=== PATIENT | female | born 2000 | race Caucasian/White ===

== ENCOUNTER 2020-10-04 20:05 | Emergency (ER) | payer BC, SELFPAY ==
[2020-10-04 20:30] VITALS: BP 138/85; PULSE 92; O2SAT 97
[2020-10-04 20:45] VITALS: BP 149/83; PULSE 98; RESP 18; TEMP 37.1; O2SAT 100; BMI 36.6
[2020-10-04 21:04] LABS: Adenovirus,PCR Not Detected (NotDetected); Bordetella Pertussis Not Detected (NotDetected); Chlamydophila Pneumoniae, PCR Not Detected (NotDetected); Coronavirus 19, PCR Not Detected (NotDetected); Coronavirus 229E Not Detected (NotDetected); Coronavirus OC43 Not Detected (NotDetected); Coronovirus HKU1,PCR Not Detected (NotDetected); Human Metapneumovirus Not Detected (NotDetected); Influenza A, PCR Not Detected (NotDetected); Influenza AH1, 2009 Not Detected (NotDetected); Influenza AH1, PCR Not Detected (NotDetected); Influenza AH3,PCR Not Detected (NotDetected); Influenza B, PCR Not Detected (NotDetected); Microscopic, Urine URINE MICROSCOPIC (MICROSCOPIC); Mycoplasma Pneumoniae, PCR Not Detected (NotDetected); Parainfluenza 1, PCR Not Detected (NotDetected); Parainfluenza 2, PCR Not Detected (NotDetected); Parainfluenza 3, PCR Not Detected (NotDetected); Parainfluenza 4, PCR Not Detected (NotDetected); Respiratory Syncytial Virus Not Detected (NotDetected); Rhinovirus/Enterovirus Not Detected (NotDetected)
[2020-10-04 21:07] VITALS: BP 136/88; PULSE 82; O2SAT 99
[2020-10-04 21:10] LABS: Basophils # 0.1 K/mm3 (0-0.2); Basophils % 0.4 % (0.1-2.0); Eosinophils # 0.2 K/mm3 (0.0-0.4); Eosinophils % 1.6 % (0.1-12.0); Hematocrit 34.2 % (37.0-47.0); Hemoglobin 11.9 g/dL (12.2-16.2); Lymphocytes # 2.9 K/mm3 (0.7-4.5); Lymphocytes % 25.3 % (10-50); Mean Corpuscular HGB Conc 34.6 g/dL (31.8-35.4); Mean Corpuscular Hemoglobin 27.7 pg (27.0-31.2); Mean Platelet Volume 6.6 fl (7.4-10.4); Monocytes # 0.5 K/mm3 (0.1-1.0); Monocytes % 4.5 % (1.7-9.3); Neutrophils # 7.7 K/mm3 (1.8-7.8); Neutrophils % 68.2 % (37.0-80.0); Platelet Count 361 K/mm3 (142-424); Red Blood Count 4.28 M/mm3 (4.20-5.40); Red Cell Distribution Width 13.8 % (11.5-17.5); White Blood Count 11.3 K/mm3 (4.8-10.8)
[2020-10-04 21:14] LABS: Alanine Aminotransferase 43 U/L (12-78); Albumin Level 4.2 g/dl (3.5-5.0); Albumin/Globulin Ratio 1.4 (1.1-1.8); Alkaline Phosphatase 83 U/L (38-126); Amylase 41 U/L (30-110); Anion Gap 10.4 mEq/L (5-15); Appearance,Urine CLEAR (Clear); Aspartate Amino Transferase 26 U/L (14-36); Bilirubin,Total 0.3 mg/dl (0.2-1.3); Bilirubin,Urine Negative (Negative); Blood Urea Nitrogen 4 mg/dl (7-17); Blood, Urine TRACE-I (Negative); Calcium 9.5 mg/dl (8.4-10.2); Carbon Dioxide 27 mmol/L (22.0-30.0); Chloride 104 mmol/L (98-107); Color,Urine YELLOW (Yellow); Creatinine Clearance Estimated 255 mL/min (50-200); Estimated Glomerular Filt Rate 156 ml/min (>60); GFR (African American) 188 ML/MIN (>60); Globulin 2.9 g/dL (1.3-3.2); Glucose 91 mg/dl (74-100); Glucose,Urine (UA) Negative (Negative); Ketones,Urine Negative (Negative); Leukocyte Esterase,Urine Negative (Negative); Lipase 21 U/L (23-300); Nitrate,Urine Negative (Negative); PH,Urine 6.5 (5.0-8.5); Potassium 3.4 mmoL/L (3.5-5.1); Protein,Urine Negative (Negative); Sodium 138 mmol/L (136-145); Total Protein,Serum 7.1 g/dl (6.3-8.2); Urobilinogen,Urine 0.2 EU/dl (0.2)
[2020-10-04 21:24] LABS: RBC,Urine Occasional #/hpf (0-3); WBC,Urine Occasional #/hpf (0-3)
--- NOTE | 2020-10-04 21:43 | HMH.EDGENADL ---
ED Disposition Clinical Impression: Viral infection Qualifiers: Weeks of gestation: 10 weeks Qualified Code(s): Z3A.10 - 10 weeks gestation of Abdominal pain Qualifiers: Abdominal location: periumbilical Qualified Code(s): R10.33 - Periumbilical pain Disposition: Home, Self-Care Condition on Discharge: Good Instructions: DI for Acute Pain -- Adult Additional Instructions: call ob and pcp in am Referrals: Nidia Draper APRN [Primary Care Provider] - - Critical Care Critical Care Time: No Attestation: On 10/04/20, the high probability of a clinically significant, sudden or life threatening deterioration of the following system(s) required my full and direct attention, intervention and personal management. The time I documented below is in addition to time spent performing reported procedures but includes the following listed in this critical care notation. Medical Decision Making - Medical Records Medical records reviewed: Yes: I reviewed the patient's medical records. - Celestine Inquiry Pt receiving controlled substance: No Vital Signs: 10/04/20 20:30 10/04/20 20:45 10/04/20 21:07 Temperature 98.8 F Temperature Source Oral Pulse Rate 92 H 82 Pulse Rate [Right] 98 H Respiratory Rate 18 Blood Pressure 138/85 136/88 Blood Pressure [Right Arm] 149/83 H Blood Pressure Mean [Right Arm] 105 Blood Pressure Source [Right Arm] Automatic Cuff Blood Pressure Position [Right Arm] Sitting 02 Sat by Pulse Oximetry 97 100 99 Oxygen Delivery Method Room Air - Lab Data Lab results reviewed: Yes: I reviewed the patient's lab results. Lab Results 10/04/20 20:10: Chlamy pneumoniae PCR Not detected, Adenovirus (PCR) Not detected, B. pertussis DNA (PCR) Not detected, Coronavirus OC43 (PCR) Not detected, Coronavirus HKU1 (PCR) Not detected, Coronavirus 229E (PCR) Not detected, SARS-CoV-2 (PCR) Not detected, Coronavirus NL63 (PCR) Detected A, Human Metapneumovir PCR Not detected, Influenza A (H1) PCR Not detected, Influ A (H1N1/09) PCR Not detected, Influenza A (H3) PCR Not detected, Influenza Type A (PCR) Not detected, Influenza Type B (PCR) Not detected, M. pneumoniae (PCR) Not detected, Parainfluenza 1 (PCR) Not detected, Parainfluenza 2 (PCR) Not detected, Parainfluenza 3 (PCR) Not detected, Parainfluenza 4 (PCR) Not detected, RSV (PCR) Not detected, Entero/Rhino (PCR) Not detected 10/04/20 20:10: Urine Color Yellow, Urine Appearance Clear, Urine pH 6.5, Ur Specific [place] 1.010, Urine Protein Negative, Urine Glucose (UA) Negative, Urine Ketones Negative, Urine Blood Trace-i, Urine Nitrate Negative, Urine Bilirubin Negative, Urine Urobilinogen 0.2, Ur Leukocyte Esterase Negative, Urine RBC Occasional, Urine WBC Occasional, Ur Squamous Epith Cells 3-5, Urine Bacteria None 10/04/20 20:10: WBC 11.3 H, RBC 4.28, Hgb 11.9 L, Hct 34.2 L, MCV 80.0 L, MCH 27.7, MCHC 34.6, RDW 13.8, Plt Count 361, MPV 6.6 L, Neut % (Auto) 68.2, Lymph % (Auto) 25.3, [place] % (Auto) 4.5, Eos % (Auto) 1.6, Baso % (Auto) 0.4, Neut # (Auto) 7.7, Lymph # (Auto) 2.9, [place] # (Auto) 0.5, Eos # (Auto) 0.2, Baso # (Auto) 0.1 10/04/20 20:10: Sodium 138, Potassium 3.4 L, Chloride 104, Carbon Dioxide 27, Anion Gap 10.4, BUN 4 L, Creatinine 0.50 L, Estimated Creat Clear 255, Estimated GFR 156, Est GFR ( Amer) 188, Glucose 91, Calcium 9.5, Total Bilirubin 0.3, AST 26, ALT 43, Alkaline Phosphatase 83, Total Protein 7.1, Albumin 4.2, Globulin 2.9, Albumin/Globulin Ratio 1.4, Amylase 41, Lipase 21 L, HCG, Quant [id number] H Result diagrams: 10/04/20 20:10 10/04/20 20:10 Medical Decision Narrative: has viral illness but not covid-19 and stable labs and has no def changes on exam - fht -0k General Adult HPI - General Chief complaint: PAIN Stated complaint: 10 wks having severe belly pain and a col Time Seen by Provider: 10/04/20 20:40 Mode of Arrival: Ambulatory Source of Information: Patient, Parent(s), Medical
[2020-10-04 22:29] LABS: Coronavirus NL63 Detected (NotDetected)
[2020-10-04 22:46] VITALS: BP 141/80; PULSE 84; RESP 16; TEMP 37
== END 2020-10-04 22:50 | disposition home or self-care (01) ==
PROVIDERS: Emergency Provider Emergency Medicine; PCP Nurse Practitioner
DX: B34.8 Other viral infections of unspecified site (principal); Z3A.10 10 weeks gestation of pregnancy; R10.33 Periumbilical pain; R05 Cough
CPT/HCPCS: 80053; 81001; 82150; 83690; 84702; 85025; 87581; 87633; 87798; 99283

== ENCOUNTER → 2021-12-20 11:25 | Outpatient (CLI) | payer OTHER, SELFPAY ==
[2021-12-20 18:36] LABS: Basophils # 0.1 K/mm3 (0-0.2); Basophils % 0.6 % (0.1-2.0); Eosinophils # 0.2 K/mm3 (0.0-0.4); Eosinophils % 1.9 % (0.1-12.0); Hematocrit 42.3 % (37.0-47.0); Hemoglobin 13.1 g/dL (12.2-16.2); Lymphocytes # 2.7 K/mm3 (0.7-4.5); Mean Corpuscular HGB Conc 30.9 g/dL (31.8-35.4); Mean Corpuscular Hemoglobin 26.9 pg (27.0-31.2); Mean Corpuscular Volume 87.1 fl (81-99); Mean Platelet Volume 8.6 fl (7.4-10.4); Monocytes # 0.4 K/mm3 (0.1-1.0); Monocytes % 4.8 % (1.7-9.3); Neutrophils # 5.6 K/mm3 (1.8-7.8); Neutrophils % 62.6 % (37.0-80.0); Platelet Count 480 K/mm3 (142-424); Red Blood Count 4.86 M/mm3 (4.20-5.40); Red Cell Distribution Width 13.5 % (11.5-17.5); White Blood Count 8.9 K/mm3 (4.8-10.8)
[2021-12-20 18:37] LABS: Alanine Aminotransferase 50 U/L (12-78); Albumin Level 4.1 g/dl (3.5-5.0); Albumin/Globulin Ratio 1.6 (1.1-1.8); Alkaline Phosphatase 104 U/L (38-126); Anion Gap 10.3 mEq/L (5-15); Aspartate Amino Transferase 41 U/L (14-36); Blood Urea Nitrogen 10 mg/dl (7-17); Calcium 9.3 mg/dl (8.4-10.2); Carbon Dioxide 26 mmol/L (22.0-30.0); Chloride 107 mmol/L (98-107); Chol/HDL Ratio 4.6 (1-3.5); Cholesterol 167 mg/dl (140-200); Estimated Glomerular Filt Rate 124 ml/min (>60); GFR (African American) 150 ML/MIN (>60); Globulin 2.6 g/dL (1.3-3.2); Glucose 102 mg/dl (74-100); HDL Cholesterol 36 mg/dl (40-60); Potassium 4.3 mmoL/L (3.5-5.1); Sodium 139 mmol/L (136-145); Total Protein,Serum 6.7 g/dl (6.3-8.2); Triglycerides 112 mg/dl (30-150); VLDL Cholesterol 22 mg/dL (0-40)
[2021-12-20 18:43] LABS: Bilirubin,Total < 0.1 mg/dl (0.2-1.3)
[2021-12-20 18:54] LABS: 25-OH Vitamin D, Total 60.5 ng/mL (30-100)
[2021-12-20 19:07] LABS: Thyroid Stimulating Hormone 0.69 uIU/mL (0.465-4.68)
[2021-12-20 19:27] LABS: Vitamin B12 316 pg/mL (239-931)
[2021-12-20 20:09] LABS: Hemoglobin A1C 4.9 % (4.0-6.0)
[2021-12-22 08:25] LABS: Direct LDL Cholesterol 103 mg/dL (100-129)
== END ==
PROVIDERS: PCP Nurse Practitioner; Visit Provider Nurse Practitioner
DX: E66.9 Obesity, unspecified (principal); Z68.35 Body mass index [BMI] 35.0-35.9, adult
CPT/HCPCS: 80053; 80061; 82306; 82607; 83036; 84443; 85025

== ENCOUNTER 2023-05-13 21:34 | Outpatient (CLI) | payer OTHER, SELFPAY ==
[2023-05-13 17:43] LABS: Basophils # 0.1 K/mm3 (0-0.2); Basophils % 0.5 % (0.1-2.0); Eosinophils # 0.3 K/mm3 (0.0-0.4); Eosinophils % 2.9 % (0.1-12.0); Hematocrit 44.2 % (37.0-47.0); Hemoglobin 15.3 g/dL (12.2-16.2); Lymphocytes # 2.7 K/mm3 (0.7-4.5); Lymphocytes % 24.6 % (10-50); Mean Corpuscular HGB Conc 34.6 g/dL (31.8-35.4); Mean Corpuscular Hemoglobin 30.2 pg (27.0-31.2); Mean Corpuscular Volume 87.2 fl (81-99); Mean Platelet Volume 8.7 fl (7.4-10.4); Monocytes # 0.6 K/mm3 (0.1-1.0); Monocytes % 5.6 % (1.7-9.3); Neutrophils # 7.2 K/mm3 (1.8-7.8); Neutrophils % 66.4 % (37.0-80.0); Platelet Count 402 K/mm3 (142-424); Red Blood Count 5.06 M/mm3 (4.20-5.40); Red Cell Distribution Width 12.8 % (11.5-17.5); White Blood Count 10.8 K/mm3 (4.8-10.8)
[2023-05-13 17:49] LABS: Chloride 102 mmol/L (98-107); Potassium 4.2 mmoL/L (3.5-5.1); Sodium 137 mmol/L (136-145)
[2023-05-13 17:51] LABS: Alanine Aminotransferase 23 U/L (12-78); Anion Gap 12.2 mEq/L (5-15); Aspartate Amino Transferase 31 U/L (14-36); Blood Urea Nitrogen 10 mg/dl (7-17); Carbon Dioxide 27 mmol/L (22.0-30.0); Estimated Glomerular Filt Rate 123 ml/min (>60); GFR (African American) 149 ML/MIN (>60)
[2023-05-13 17:52] LABS: Albumin Level 4.5 g/dl (3.5-5.0); Albumin/Globulin Ratio 1.8 (1.1-1.8); Alkaline Phosphatase 73 U/L (38-126); Bilirubin,Total 0.4 mg/dl (0.2-1.3); Chol/HDL Ratio 4.7 (1-3.5); Cholesterol 180 mg/dl (140-200); Globulin 2.5 g/dL (1.3-3.2); Glucose 98 mg/dl (74-100); HDL Cholesterol 38 mg/dl (40-60); Triglycerides 169 mg/dl (30-150); VLDL Cholesterol 34 mg/dL (0-40)
[2023-05-13 18:01] LABS: C-Reactive Protein 3.1 mg/L (0-4)
[2023-05-13 18:05] LABS: Direct LDL Cholesterol 99.41 mg/dL (100-129)
[2023-05-13 18:08] LABS: Erythrocyte Sedimentation Rate 10 mm/hr (0-20)
[2023-05-13 18:09] LABS: 25-OH Vitamin D, Total 40.1 ng/mL (30-100)
[2023-05-13 18:23] LABS: Thyroid Stimulating Hormone 0.58 uIU/mL (0.465-4.68)
[2023-05-13 18:42] LABS: Vitamin B12 370 pg/mL (239-931)
[2023-05-13 18:57] LABS: Uric Acid 3.1 mg/dl (2.5-6.2)
[2023-05-13 20:54] LABS: Hemoglobin A1C 4.9 % (4.0-6.0)
[2023-05-15 06:04] LABS: RA Latex Turbid. <10.0 IU/mL (<14.0)
[2023-05-15 08:24] LABS: Cytomegalovirus (CMV) Ab, IgG >10.00 U/mL (0.00-0.59); Cytomegalovirus (CMV) Ab, IgM <30.0 AU/mL (0.0-29.9)
[2023-05-15 12:46] LABS: Anti-Centromere B Antibodies <0.2 AI (0.0-0.9); Anti-DNA (DS) Ab Qn <1 IU/mL (0-9); Anti-Jo-1 <0.2 AI (0.0-0.9); Anti-Smith Antibody <0.2 AI (0.0-0.9); Antichromatin Antibodies <0.2 AI (0.0-0.9); Antiscleroderma-70 Antibodies <0.2 AI (0.0-0.9); RNP Antibodies <0.2 AI (0.0-0.9); Sjogren's Anti-SS-A <0.2 AI (0.0-0.9); Sjogren's Anti-SS-B <0.2 AI (0.0-0.9)
[2023-05-15 14:13] LABS: EBV Ab VCA, IgM <36.0 U/mL (0.0-35.9); EBV Nuclear Antigen Ab, IgG >600.0 U/mL (0.0-17.9); Lyme Ab CIA Negative (Negative)
[2023-05-16 09:14] LABS: Antinuclear Antibodies, IFA Negative (.)
== END 2023-05-13 23:59 ==
LOC: LAB.DROPOF 21:39
PROVIDERS: PCP Nurse Practitioner; Visit Provider Nurse Practitioner
DX: R00.2 Palpitations (principal); M25.50 Pain in unspecified joint; R53.83 Other fatigue; E66.9 Obesity, unspecified; Z68.30 Body mass index [BMI] 30.0-30.9, adult; Z79.899 Other long term (current) drug therapy
CPT/HCPCS: 80053; 80061; 82306; 82607; 83036; 84439; 84443; 84550; 85025; 85651; 86038; 86140; 86225; 86235; 86431; 86618; 86644; 86645; 86664; 86665

== ENCOUNTER 2023-05-23 15:07 | Outpatient (CLI) | payer OTHER, SELFPAY | END 2023-05-23 23:59 | LOC: RT 15:08 | PROVIDERS: PCP Nurse Practitioner; Visit Provider Nurse Practitioner | DX: R00.2 Palpitations (principal); R42 Dizziness and giddiness; R07.9 Chest pain, unspecified | CPT/HCPCS: 93225 ==

== ENCOUNTER 2023-06-09 08:00 | Outpatient (CLI) | payer OTHER, SELFPAY ==
--- NOTE | 2023-06-09 08:01 | CA_ITS ---
APPROVED REPORT EXAM: Comprehensive 2D, Doppler, and color-flow Echocardiogram [employer] Coordinator: Mireille Sin RT(R) Ht: 5 ft 2 in Wt: 171lbs BSA: 1.79 BP: 140/78 mmHg Indications: dizziness, CP, HTN, palpitations, fatigue, visual disturbance. 2D Dimensions LA Volume 22.80 mL LA Volume Index 12.74 mL/m2 (M/F) 16-34 EF AP2 54.7 % GL Strain -19.3 % M-Mode Dimensions RVDd 1.98 cm (0.9-2.6) LA Diam 3.56 cm (1.9-4.0) LVDd 4.73 cm (3.5-5.7) LVDs 3.52 cm (3.5-5.7) IVSd 0.64 cm (0.6-1.1) PWd 0.64 cm (0.6-1.1) EF (Teich) 50.30% FS 25.60% EDV (Teich) 103.90 mL TAPSE 2.10 (<1.7) ESV (Teich) 51.60 mL LV Diastology E Decel Time 187 (160-240 msec) E/A Ratio 1.9 Mitral Valve MV E Max Davin. 95.0 (40-130 cm/s) MV A Velocity 49.0 (40-130 cm/s) E/A Ratio 1.92 MV PHT 55.0 ms Left Ventricle The left ventricle is normal size. The left ventricular systolic function is normal. The left ventricular ejection fraction is within the normal range. There is normal left ventricular wall thickness. There is normal LV segmental wall motion. The left ventricular diastolic function is normal. LVEF is 55%. Right Ventricle The right ventricle is normal size. The right ventricular systolic function is normal. Atria The left atrium size is normal. The right atrium size is normal. There is no Doppler evidence of interatrial shunt. Aortic Valve The aortic valve is normal in structure. The aortic valve is trileaflet. There is no aortic valvular stenosis. Trace aortic regurgitation. Mitral Valve The mitral valve is normal in structure. No evidence of mitral valve stenosis. Mild mitral regurgitation. Tricuspid Valve The tricuspid valve leaflets are thin and pliable. Trace tricuspid regurgitation. There is insufficient TR jet to estimate RVSP. Pulmonic Valve The pulmonary valve is normal in structure. Great Vessels The aortic root is normal in size. The ascending aorta is normal in size. The IVC is not well-visualized. Pericardium There is no pericardial effusion. Other Information Study Quality: Adequate Conclusion Normal biventricular systolic function. No significant valvular stenosis or regurgitation. Electronically signed by : Kelly Palacios MD 06/11/2023 11:02:27
--- NOTE | 2023-06-09 08:06 | MR_ITS ---
FINAL REPORT CLINICAL HISTORY: dizziness, vision change, family history brain ca 16ml prohance FINDINGS: Multiplanar MR imaging of the brain was performed without and with contrast. 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 Cerebellar vermis is intact. There is no evidence of Chiari malformation.There is no evidence of intracranial hemorrhage or mass. No abnormal extra-axial fluid collection is seen. The ventricular size is within normal limits. There is no evidence of shift of the midline structures. The posterior fossa and brainstem have an unremarkable appearance. No area of abnormal restricted diffusion is identified. No abnormal contrast enhancement is seen. Normal major vessel vascular flow voids are noted. IMPRESSION: No acute intracranial abnormality identified. Reviewed, Interpreted and Dictated by Jamie Silveira MD Transcribed by Nae Garcia Authenticated and [facility]
[2023-06-09] MEDS: GADOTERIDOL INJ 17ML SYRINGE 16 ML IV (09:11)
[2023-06-09] MEDS: SODIUM CHLORIDE 0.9% 10ML SYR (RAD ONLY) 10 ML IV (09:11)
== END 2023-06-09 23:59 ==
PROVIDERS: PCP Nurse Practitioner; Visit Provider Nurse Practitioner
DX: R42 Dizziness and giddiness (principal); R07.9 Chest pain, unspecified; R00.2 Palpitations; H53.9 Unspecified visual disturbance; Z80.8 Family history of malignant neoplasm of other organs or systems
CPT/HCPCS: 70553; 93306; A9576